=== PATIENT | male | born 1955 | race Caucasian/White ===

== ENCOUNTER 2020-02-24 08:19 | Emergency (ER) | payer BC, OTHER ==
[2020-02-24 08:31] VITALS: BP 151/66; PULSE 85; TEMP 99.1; BMI 28.1
[2020-02-24] MEDS ORDERED: SODIUM CHLORIDE 1,000 ML IV STA (09:13)
--- NOTE | 2020-02-24 09:23 | PDOC ---
History of Present Illness - General Chief Complaint: Pain Stated Complaint: PAIN Time Seen by Provider: 02/24/20 08:42 History Source: Patient Exam Limitations: No Limitations - History of Present Illness Travel History: No Initial Comments: 02/24/20 10:02 64-year-old male presents to ED with complaints of lower abdominal pain which he describes as a cramping for the past 5 days now radiating to his back and along with complaints of mild urinary frequency along with dysuria. Patient states subjective chills without actual temperature. Patient denies diabetes, recent travel, recent illness or other complaints. Patient denies history of GI or history including renal stones and diverticulitis Timing/Duration: reports: changing over time Quality: reports: moderate, cramping Abdominal Pain Onset Location: reports: suprapubic Pain Radiation: reports: flank, back Activities at Onset: reports: none Aggravating Factors: improves with: None Alleviating Factors: improves with: None Past History - Travel History Traveled outside of the country in the last 30 days: No Close contact w/someone who was outside of country & ill: No - Medical History Allergies/Adverse Reactions: Allergies Allergy/AdvReac Type Severity Reaction Status Date / Time No Known Allergies Allergy Verified 02/24/20 08:26 Home Medications: Ambulatory Orders NK [No Known Home Medication] 02/24/20 COPD: No - Psycho-Social/Smoking History Patient Lives Alone: No Lives with/in: spouse/SO Smoking History: Never smoked Have you smoked in the past 12 months: No - Substance Abuse Hx (Audit-C & DAST Scrn) How often the patient has a drink containing alcohol: Never Score: In Men: 4 or > Positive; In Women: 3 or > Positive: 0 Screen Result (Pos requires Nsg. Audit-10AR): Negative In the last yr the pt used illegal drug/Rx for NonMed reason: No Score: Yes response is considered Positive: 0 Screen Result (Positive result requires Nsg. DAST-10): Negative Abd/GI Specific PMHX - Complaint Specific PMHX Diverticulitis: No Review of Systems - Review of Systems Able to Perform ROS?: Yes Constitutional: Yes: Chills HEENTM: No: Symptoms Reported Respiratory: No: Symptoms reported Cardiac (ROS): No: Symptoms Reported ABD/GI: Yes: Abdominal cramping : Yes: Dysuria, Frequency, Flank Pain Musculoskeletal: Yes: Back Pain Integumentary: No: Symptoms Reported Neurological: No: Symptoms reported *Physical Exam - Vital Signs Last Vital Signs Temp Pulse Resp BP Pulse Ox 99.1 F 85 18 151/66 100 02/24/20 08:26 02/24/20 08:26 02/24/20 08:26 02/24/20 08:26 02/24/20 08:26 - Physical Exam General Appearance: Yes: Nourished, Appropriately Dressed. No: Apparent Distress HEENT: negative: Pale Conjunctivae Neck: positive: Supple Respiratory/Chest: positive: Lungs Clear, Normal Breath Sounds. negative: Respiratory Distress, Accessory Muscle Use Cardiovascular: positive: Regular Rhythm, Regular Rate. negative: Murmur Gastrointestinal/Abdominal: positive: Normal Bowel Sounds, Soft, Tenderness (Mid suprapubic). negative: Distended Male Genitalia: positive: normal genitalia Musculoskeletal: positive: CVA Tenderness (Bilaterally) Extremity: positive: Normal Inspection Integumentary: positive: Normal Color, Warm, Moist Neurologic: positive: Motor Strength 5/5 (Ambulatory) ED Treatment Course - LABORATORY CBC & Chemistry Diagram: 02/24/20 10:50 02/24/20 10:50 Medical Decision Making - Medical Decision Making 02/24/20 10:04 Chief complaint: Patient with abdominal cramping rating out to his back for the past 5 days associated with subjective chills. Patient also complains of urinary frequency and mild dysuria since yesterday. Exam: Patient with bilateral CVA tenderness no suprapubic tenderness. Vital signs stable. Otherwise normal PE. Plan: Labs, urine, IV fluids and IV Tylenol. Will consider imaging once labs are reviewed 02/24/20 12:59 Patient states feeling better. Patient's urine and labs were essentially normal. Urine culture was sent. Discharge - Discharge Information Problems reviewed: Yes Clinical Impression/Diagnosis: Abdominal pain Condition: Improved Disposition: HOME - Follow up/Referral - Patient Discharge Instructions Patient Printed Discharge Instructions: DI for Abdominal Pain-Adult Additional Instructions: Please follow-up with your primary care physician take labs with you. At this time your labs were normal and we will notify you if your urine culture shows an infection - Post Discharge Activity
[2020-02-24 11:31] LABS: BASO % 0.3 % (0-2.0); HEMATOCRIT 38.3 % (35.4-49); HEMOGLOBIN 12.4 GM/dL (11.7-16.9); LYMPH % 21.3 % (8-40); MCH 23.8 pg (25.7-33.7); MCHC 32.2 g/dl (32.0-35.9); MONO % 7.9 % (3.8-10.2); NEUT % 70.5 % (42.8-82.8); RBC 5.18 M/mm3 (4.00-5.60); RDW 15.3 % (11.9-15.9); WHITE BLOOD COUNT 5.4 K/mm3 (4.0-10.0)
[2020-02-24 12:05] LABS: ALBUMIN 3.7 g/dl (3.4-5.0); BILIRUBIN,TOTAL 0.5 mg/dL (0.2-1); BLOOD UREA NITROGEN 10.5 mg/dL (7-18); MAGNESIUM 2.3 mg/dL (1.8-2.4); POTASSIUM 5.1 mmol/L (3.5-5.1); TOT PROT 9.1 g/dl (6.4-8.2)
[2020-02-24 12:33] LABS: URINE APPEARANCE CLEAR; URINE BILIRUBIN NEGATIVE (NEGATIVE); URINE COLOR YELLOW; URINE GLUCOSE (UA) NEGATIVE (NEGATIVE); URINE KETONE NEGATIVE (NEGATIVE); URINE LEUK ESTERASE NEGATIVE (NEGATIVE); URINE NITRITE NEGATIVE (NEGATIVE); URINE PROTEIN NEGATIVE (NEGATIVE)
[2020-02-24 12:37] LABS: PLATELET ESTIMATE DECREASED
== END 2020-02-24 13:12 | disposition home or self-care (01) ==
LOC: JER 08:19 → EDBD 08:19 → JER 13:12
PROC: 3E0337Z Introduction of Electrolytic and Water Balance Substance into Peripheral Vein, Percutaneous Approach (ICD-10-PCS; principal; 2020-02-24)
DX: R10.9 Unspecified abdominal pain (principal)
CPT/HCPCS: 36415; 80053; 81003; 83690; 83735; 85025; 87086; 99283-25